=== PATIENT | female | born 1980 | race Caucasian/White ===

== ENCOUNTER 2019-08-02 09:30 | Emergency (ER) | payer OTHER, SELFPAY ==
[2019-08-02 09:36] VITALS: BP 121/77; PULSE 104; RESP 16; TEMP 36.6; O2SAT 97; BMI 29.2
--- NOTE | 2019-08-02 09:48 | ED_ITS ---
HPI - General Adult General: Chief complaint: General Medical Stated complaint: Fever,throat hurts Time Seen by Provider: 08/02/19 09:33 History of Present Illness: HPI narrative: Sore throat headache body aches MD complaint: f fever x2 days. Has been exposed to flulu Onset (ago): day(s) (2) Associated symptoms: Deny chest pain, dyspnea, headache(s), nausea, rash or vomiting Review of Systems Const: Reports: fever and other; Denies: chills or body aches Eyes: Denies: change in vision or blurry vision ENMT: Reports: throat pain and painful swallowing; Denies: nasal congestion Card: Denies: chest pain or shortness of breath on exertion Resp: Denies: shortness of breath, productive cough or non-productive cough GI: Denies: abdominal pain, nausea or vomiting Musc: Denies: extremity pain Skin/Breast: Denies: rash Neuro: Denies: headache Psych: Denies: anxiety or depression Andrea/Lymph: Denies: easy bruising PFSH ED PFSH: Statuses (acute, chronic, etc) shown below reflect problem list status as previously entered and may not be historically accurate Social History Smoking and tobacco status: current every day smoker Physical Exam Const: COMMON NORMALS: no apparent distress, average body habitus and oriented x3 HENMT: COMMON NORMALS: normocephalic HEAD & SCALP: normal to inspection and normocephalic FACE & SINUS: normal facial exam THROAT: posterior oropharynx abnormal (Erythema) Eye: COMMON NORMALS: conjunctivae normal GENERAL EYE: normal appearance of both eyes CONJUNCTIVA: Yes conjunctivae normal Neck/C-Spine: COMMON NORMALS: no JVD Chest: COMMONS NORMALS: inspection of chest normal Resp: COMMON NORMALS: normal respiratory effort and clear to auscultation bilaterally AUSCULTATION: clear to auscultation bilaterally Cardio: COMMON NORMALS: no JVD, regular rate and regular rhythm RATE: regular rate RHYTHM: regular rhythm GI: COMMON NORMALS: normal to inspection, nondistended, normoactive bowel sounds Extremity: COMMON NORMALS: normal to inspection and full ROM Neuro: COMMON NORMALS: oriented x3 Course Vital Signs: Vital signs: Vital Signs Temperature 97.8 F 08/02/19 09:36 Pulse Rate 104 H 08/02/19 09:36 Respiratory Rate 16 08/02/19 09:36 Blood Pressure 121/77 08/02/19 09:36 Pulse Oximetry 97 08/02/19 09:36 Coding Level of Care Code ED Store Standards Associate for Chg Fwd Exam Problem Focused
--- NOTE | 2019-08-02 09:49 | PC.NURSE ---
visualized throat , swollen and red
[2019-08-02 10:37] LABS: Rapid Strep A Test Positive (Negative)
[2019-08-02 10:50] LABS: Influenza A by IFA Negative (Negative); Influenza B by IFA Negative (Negative)
== END 2019-08-02 11:02 | disposition home or self-care (01) ==
PROVIDERS: Emergency Provider Nurse Practitioner Family; Family Provider Internal Medicine
DX: R50.9 Fever, unspecified (principal); F17.210 Nicotine dependence, cigarettes, uncomplicated
CPT/HCPCS: 87804; 87880; 99281; 99282

== ENCOUNTER 2022-08-20 12:33 | Outpatient (CLI) | payer OTHER, SELFPAY ==
--- NOTE | 2022-08-20 13:20 | MM_ITS ---
WS: [id number] BILATERAL 3D TOMOSYNTHESIS DIGITAL SCREENING MAMMOGRAPHY WITH CAD CLINICAL INFORMATION: SCREENING HISTORY: Screening mammogram. No current complaints. COMPARISON: 2013 TECHNIQUE: Bilateral CC and MLO views. FINDINGS: The breasts are composed of heterogeneous fibroglandular density tissue, which can limit the detectio n of small underlying mass lesions. No suspicious mass, asymmetry, calcifications, or architectural d istortion. No evidence of malignancy. MM/[place] [id number] IMPRESSION: BI-RADS: 1-Negative FOLLOW UP: 1 Year Follow-up Recommend return to annual screening mammography.
== END 2022-08-20 12:34 | disposition home or self-care (01) ==
LOC: RAD 12:41
PROVIDERS: PCP Internal Medicine; Visit Provider Family Medicine
DX: Z12.31 Encounter for screening mammogram for malignant neoplasm of breast (principal)
CPT/HCPCS: 77063; 77067

== ENCOUNTER 2023-11-16 17:37 | Emergency (ER) | payer OTHER, SELFPAY ==
[2023-11-16 17:41] VITALS: BP 131/76; PULSE 101; RESP 14; TEMP 36.7; O2SAT 99
--- NOTE | 2023-11-16 17:55 | CTR_ITS ---
PROCEDURE INFORMATION: Exam: CT Maxillofacial Without Contrast Exam date and time: 11/16/2023 6:03 PM Age: 43 years old Clinical indication: Other: Swollen RT ear; Additional info: Right ear, face swelling TECHNIQUE: Imaging protocol: Computed tomography of the face without contrast. Radiation optimization: All CT scans at this facility use at least one of these dose optimization techniques: automated exposure control; mA and/or kV adjustment per patient size (includes targeted exams where dose is matched to clinical indication); or iterative reconstruction. COMPARISON: No relevant prior studies available. RADIATION DOSE METRICS: Total DLP (mGy-cm): 641.28 FINDINGS: Orbital cavities: Orbits are normal. Globes are unremarkable. Bones: No acute fracture. Paranasal sinuses: Normal. No air-fluid levels. Mastoid air cells: Trace fluid in the inferior right mastoid air cells. The mastoid air cells are otherwise clear. Auditory system: Minimal soft tissue swelling just anterior to the right external auditory canal between the auditory canal in the maxillary condyle. No definitive fluid collection though thin linear fluid collection measuring less than 3 mm in thickness. No fluid identified within the middle ear bilaterally. Soft tissues: Soft tissues are otherwise unremarkable. CT/CT facial bones wo con* [id number] IMPRESSION: 1. Minimal soft tissue thickening just anterior to the right external auditory canal. No definitive fluid collection is seen though a thin linear fluid collection measuring less than 3 mm anterior to the external auditory canal is possible. Correlate with physical exam. 2. Trace fluid in the inferior right mastoid air cells.
--- NOTE | 2023-11-16 17:56 | W.ED.EAR ---
Documented by User: [email or web address] Campbell 11/16/23 19:27 HPI - Ear Problem General: Chief complaint: Ear Stated complaint: right ear swollen Time Seen by Provider: 11/16/23 17:48 Source: patient Mode of arrival: ambulatory Limitations: no limitations History of Present Illness: Patient is a 43-year-old female presenting to the emergency department complaining of right ear and face swelling onset 2 days. Patient notes that began with her ear, though now has spread to her right face and submandibular area. She denies any hearing changes or posterior ear pain. Additionally she denies any inner ear pain. No recent sinus infections or upper respiratory infections of any kind. No fevers noted. She denies any tongue or throat swelling or breathing difficulties. She is only taking Excedrin for her symptoms, no relief. Pain is worse with manipulation of the right ear and palpation of the right face. MD Complaint: ear pain Location: right ear Duration: constant Severity: moderate Relieving factors: nothing Exacerbating factors: palpation Discharge from ear: no Associated symptoms: Reports ear or mastoid pain; Denies fever(s), headache(s), neck pain or tinnitus Treatment prior to arrival: other (Excedrin) Review of Systems General: Reports: 10 or more systems reviewed and unremarkable except in HPI and below Const: Denies: fever(s), chills or fatigue Eyes: Denies: change in vision ENMT: Reports: ear or mastoid pain and sinus pain; Denies: throat pain, ear discharge, change in hearing, tinnitus or nasal discharge Card: Denies: chest pain, palpitations, swelling of feet/ankles or lightheadedness Resp: Denies: dyspnea, productive cough or wheezing GI: Denies: abdominal pain, nausea, vomiting, diarrhea or constipation : Denies: flank pain, difficulty voiding, dysuria or urinary frequency Musc: Denies: neck pain, back pain or joint pain Skin/Breast: Denies: rash Neuro: Denies: headache(s), numbness in extremities or weakness in extremities PFSH ED PFSH: Medical History Asthma Family History Other Cancer Diabetes Heart disease Social History Smoking and tobacco/nicotine status: current every day tobacco/nicotine user Alcohol intake: never Marital status: Single service: No Current gender identity: Female Physical Exam Const: COMMON NORMALS: no acute distress and healthy appearing GENERAL APPEARANCE: cooperative, comfortable and well developed HENMT: COMMON NORMALS: normocephalic, atraumatic, hearing grossly normal bilaterally, EAC's normal, TM's normal bilaterally, Normal external nose present and Normal nasal mucous membranes and turbinates present HEAD & SCALP: normal to inspection, normocephalic and atraumatic FACE & SINUS: sinuses nontender, erythema on the right, edema on the right and Facial tenderness on exam of face and sinuses on the right; no abrasion, no fluctuance and no scar NOSE: Normal external nose present, Normal nares present, No nasal polyps present and Normal nasal mucous membranes and turbinates present EXTERNAL EAR: Yes external ear abnormal Abnormal external ear present: auricular tenderness and other (Auricle is erythematous and slightly edematous) and Yes mastoids normal EXTERNAL AUDITORY CANAL: EAC's normal TYMPANIC MEMBRANE: TM's normal bilaterally MOUTH: Normal oral and palatal mucosa present THROAT: posterior oropharynx normal and tonsils normal Eye: COMMON NORMALS: EOMs intact bilaterally, conjunctivae normal and normal visual vega by confrontation GENERAL EYE: appearance normal, both eyes and all related structures CONJUNCTIVA: Yes conjunctivae normal Neck/C-Spine: COMMON NORMALS: full ROM, no lymphadenopathy, supple and no meningeal signs GENERAL: Yes normal visual inspection Chest: COMMONS NORMALS: normal inspection of the chest Resp: COMMON NORMALS: normal respiratory effort and clear to auscultation bilaterally EFFORT & INSPECTION: Yes able to speak in complete sentences AUSCULTATION: clear to auscultation bilaterally Cardio: COMMON NORMALS: regular rate, regular rhythm, S1 normal heart sound present and S2 normal heart sound present RATE: regular rate RHYTHM: regular rhythm HEART SOUNDS: S1 normal heart sound present, S2 normal heart sound present, no gallops, no murmurs and no rubs Extremity: COMMON NORMALS: normal to inspection, full ROM and capillary refill normal Neuro: MENINGEAL SIGNS: Yes no meningeal signs Skin: COMMON NORMALS: no rashes or lesions noted GENERAL SKIN EXAM: no rashes or lesions noted Course Vital Signs: Vital signs: Vital Signs Temperature 98.0 F 11/16/23 17:41 Pulse Rate 87 11/16/23 19:30 Respiratory Rate 14 11/16/23 19:30 Blood Pressure 125/83 11/16/23 19:04 Pulse Oximetry 98 11/16/23 19:30 Oxygen Delivery Me thod Room Air 11/16/23 19:04 MDM - Ear Medical Decision Making Patient presents for right auricular swelling and some facial pain for the past couple days. On arrival her vitals were unremarkable. She was given shot of Decadron initially, then a facial CT was obtained that showed some soft tissue swelling just anterior to the right ear, no obvious abscess was noted. Clinically I do not believe she has an abscess as there is no area of fluctuance. Fluid was noted just inferior to the right mastoid area, so we will treat for an acute mastoiditis with ciprofloxacin and steroids. Additionally I will refer her to ENT for any further evaluation, and return precautions were given in the case that her mastoiditis were to progress. Patient agrees with plan and will be discharged home. Lab Data Radiology Impressions Face CT 11/16/23 17:55 IMPRESSION: 1. Minimal soft tissue thickening just anterior to the right external auditory canal. No definitive fluid collection is seen though a thin linear fluid collection measuring less than 3 mm anterior to the external auditory canal is possible. Correlate with physical exam. 2. Trace fluid in the inferior right mastoid air cells. All radiology interpretation(s) finalized by discharge Discharge Plan Discharge Patient Disposition: Home Clinical Impression: Acute mastoiditis Qualifiers: Laterality: right Qualified Code(s): H70.001 - Acute mastoiditis without complications, right ear Condition: Stable Prescriptions: New Cipro 500 mg tablet 500 mg PO BID 10 Days Qty: 20 0RF No Action sumatriptan succinate [Imitrex] 50 mg tablet See Rx Instructions PO .COMPLEX Rx Instructions: take 1 tab at onset of headache; if no relief may repeat 1 tab after at least 2 hrs; max = 4 tabs/24 hr PO amitriptyline 75 mg tablet 75 mg PO BEDTIME Qty: 90 3RF Discharge Orders: Discharge ED (Routine); Ordered 11/16/23 Ordered By: Orion Ballard Referrals: Zaire Acuna MD [Primary Care Provider] - Discharge Diet: Usual diet Discharge Activity: Increase activity as tolerated Patient Instructions: Mastoiditis (ED) Activity Restrictions/Additional Instructions: Take antibiotics as prescribed. Prednisone as prescribed. Follow-up with ENT as discussed. If your condition worsens or you develop any posterior ear swelling or redness, return to the emergency department. Otherwise, you may follow-up as planned. Coding Level of Care Code ED Medical Review Coordinator for Chg Fwd Documented by User: Tyron Miller DO 11/23/23 07:08 HPI - Ear Problem General: Chief complaint: Ear Stated complaint: right ear swollen Time Seen by Provider: 11/16/23 17:48 [facility] ED PFSH: Medical History Asthma Family History Other Cancer Diabetes Heart disease Social History Smoking and tobacco/nicotine status: current every day tobacco/nicotine user Alcohol intake: never Marital status: Single service: No Current gender identity: Female Course Vital Signs: Vital signs: Vital Signs Temperature 98.0 F 11/16/23 17:41 Pulse Rate 87 11/16/23 19:30 Respiratory Rate 14 11/16/23 19:30 Blood Pressure 125/83 11/16/23 19:04 Pulse Oximetry 98 11/16/23 19:30 Oxygen Delivery Me thod Room Air 11/16/23 19:04 MDM - Ear Medical Decision Making Patient presents for right auricular swelling and some facial pain for the past couple days. On arrival her vitals were unremarkable. She was given shot of Decadron initially, then a facial CT was obtained that showed some soft tissue swelling just anterior to the right ear, no obvious abscess was noted. Clinically I do not believe she has an abscess as there is no area of fluctuance. Fluid was noted just inferior to the right mastoid area, so we will treat for an acute mastoiditis with ciprofloxacin and steroids. Additionally I will refer her to ENT for any further evaluation, and return precautions were given in the case that her mastoiditis were to progress. Patient agrees with plan and will be discharged home. Chart reviewed Lab Data Radiology Impressions Face CT 11/16/23 17:55 IMPRESSION: 1. Minimal soft tissue thickening just anterior to the right external auditory canal. No definitive fluid collection is seen though a thin linear fluid collection measuring less than 3 mm anterior to the external auditory canal is possible. Correlate with physical exam. 2. Trace fluid in the inferior right mastoid air cells. Discharge Plan Discharge Patient Disposition: Home Clinical Impression: Acute mastoiditis Qualifiers: Laterality: right Qualified Code(s): H70.001 - Acute mastoiditis without complications, right ear Condition: Stable Prescriptions: New Cipro 500 mg tablet 500 mg PO BID 10 Days Qty: 20 0RF No Action sumatriptan succinate [Imitrex] 50 mg tablet See Rx Instructions PO .COMPLEX Rx Instructions: take 1 tab at onset of headache; if no relief may repeat 1 tab after at least 2 hrs; max = 4 tabs/24 hr PO amitriptyline 75 mg tablet 75 mg PO BEDTIME Qty: 90 3RF Discharge Orders: Discharge ED (Routine); Ordered 11/16/23 Ordered By: Orion Ballard Referrals: Zaire Acuna MD [Primary Care Provider] - Discharge Diet: Usual diet Discharge Activity: Increase activity as tolerated Patient Instructions: Mastoiditis (ED) Activity Restrictions/Additional Instructions: Take antibiotics as prescribed. Prednisone as prescribed. Follow-up with ENT as discussed. If your condition worsens or you develop any posterior ear swelling or redness, return to the emergency department. Otherwise, you may follow-up as planned. Coding Level of Care Code ED Medical Review Coordinator for Marleen Lilly
[2023-11-16] MEDS: dexamethasone 10 mg/mL INJ IM (17:58)
[2023-11-16 18:41] VITALS: BP 147/100; RESP 14; O2SAT 100
[2023-11-16] MEDS: HYDROcodone-acetaminophen 7.5-325 mg Tablet 1 TAB PO (18:44)
[2023-11-16 19:04] VITALS: BP 125/83; O2SAT 99
[2023-11-16] MEDS: predniSONE 20 mg Tablet 60 MG PO (19:29)
[2023-11-16] MEDS: ciprofloxacin 500 mg Tablet PO (19:29)
[2023-11-16 19:30] VITALS: PULSE 87; RESP 14; O2SAT 98
== END 2023-11-16 19:32 | disposition home or self-care (01) ==
PROVIDERS: Emergency Provider Physician Assistant; PCP Family Medicine
DX: H70.001 Acute mastoiditis without complications, right ear (principal); Z72.0 Tobacco use
CPT/HCPCS: 70486; 96372; 99284; J1100; J7512

== ENCOUNTER 2023-11-24 16:54 | Emergency (ER) | payer OTHER, SELFPAY ==
[2023-11-24 17:00] VITALS: BP 144/83; PULSE 95; RESP 18; TEMP 37.2; O2SAT 98; BMI 27.8
[2023-11-24 17:30] VITALS: BP 120/64; PULSE 68; O2SAT 96
--- NOTE | 2023-11-24 17:32 | W.ED.HA ---
HPI - Headache General: Chief Complaint: Headache Stated Complaint: headache, chest pain, conjestion Time Seen by Provider: 11/24/23 17:17 Source: patient and family Mode of arrival: ambulatory Limitations: no limitations History of Present Illness: This patient returns to the emergency department. She apparently was seen in the emergency department November 15. At that time she was having some subjective right ear pain and right facial pain. She was evaluated thought to have possible mild mastoiditis by diagnosis and treated with antibiotics and steroids. She states she still has congestion some mild headache as well as sore throat. She states she has no taste. She denies any fevers or chills. She denies any vertigo change in her hearing etc. She states that the Cipro upsets her stomach and she has stopped taking it. She denies any known exposure to infectious disease. She does not use tobacco although she occasionally vapes. She states the headache is not pervasive to her and not a significant issue other than that she is kind of a frontal headache. Denies any concomitant nausea vomiting diarrhea shortness of breath cough etc. Associated symptoms: Deny chest pain, fever(s), nausea, rash or vomiting Review of Systems Const: Denies: fever(s), chills or body aches Eyes: Denies: change in vision or blurry vision ENMT: Reports: throat pain and nasal congestion; Denies: odynophagia or nasal discharge Card: Denies: chest pain, palpitations or irregular heart rhythm Resp: Denies: dyspnea, productive cough or non-productive cough GI: Denies: nausea, vomiting or diarrhea : Denies: flank pain, difficulty voiding or dysuria Musc: Denies: neck pain, back pain or extremity pain Skin/Breast: Denies: rash, pruritus or erythema Neuro: Denies: numbness in extremities or weakness in extremities Psych: Denies: anxiety, depression or mood swings Endo: Denies: polyuria, polydipsia or tired all the time Andrea/Lymph: Denies: easy bruising [facility] ED PFSH: Medical History Asthma Family History Other Cancer Diabetes Heart disease Social History Smoking and tobacco/nicotine status: current every day tobacco/nicotine user Alcohol intake: never Marital status: Single service: No Current gender identity: Female Physical Exam Narrative: EXAM NARRATIVE: She makes good eye contact appears to be in no acute distress answers questions in a goal-directed voice and complete sentences. Const: COMMON NORMALS: no acute distress, average body habitus and patient oriented x3 GENERAL APPEARANCE: cooperative and comfortable HENMT: COMMON NORMALS: normocephalic, atraumatic, external ears normal (Nontender in the postauricular and preauricular regions.), EAC's normal, TM's normal bilaterally, Normal nasal mucous membranes and turbinates present, moist oral mucous membranes and oropharynx normal HEAD & SCALP: normocephalic and atraumatic FACE & SINUS: normal facial exam, sinuses nontender and face symmetric NOSE: Normal nasal mucous membranes and turbinates present EXTERNAL EAR: Yes external ears normal (Nontender in the postauricular and preauricular regions.) EXTERNAL AUDITORY CANAL: EAC's normal TYMPANIC MEMBRANE: TM's normal bilaterally Eye: COMMON NORMALS: Equal, round and reactive pupils present, EOMs intact bilaterally and conjunctivae normal CONJUNCTIVA: Yes conjunctivae normal PUPIL: Yes Equal, round and reactive pupils present Neck/C-Spine: COMMON NORMALS: full ROM, no lymphadenopathy and supple Chest: COMMONS NORMALS: normal inspection of the chest and normal palpation of entire chest wall Resp: COMMON NORMALS: normal respiratory effort, No retractions, No use of accessory muscles and clear to auscultation bilaterally AUSCULTATION: clear to auscultation bilaterally Cardio: COMMON NORMALS: regular rate, regular rhythm, No murmurs present (Cardio) and Peripheral pulses 2+ throughout RATE: regular rate RHYTHM: regular rhythm PERIPHERAL PULSES: Peripheral pulses 2+ throughout GI: COMMON NORMALS: Normal to inspection, nondistended, normoactive bowel sounds present, Soft to palpation and non-tender PALPATION: Yes Soft to palpation : COMMON NORMALS: Yes no CVA tenderness BLADDER/KIDNEY EXAM: Yes no CVA tenderness Back/Pelvis: COMMON NORMALS: no CVA tenderness, thoracic and lumbar spine normal to inspection and no thoracic nor lumbar tenderness Extremity: COMMON NORMALS: normal to inspection, full ROM, capillary refill normal and no joint enlargement Neuro: COMMON NORMALS: patient oriented x3, moves all extremities, no focal motor deficits and no sensory deficits noted CRANIAL NERVES: Yes CN normal except as noted Psych: COMMON NORMALS: mental status grossly normal Skin: COMMON NORMALS: no rashes or lesions noted, no wounds and turgor normal GENERAL SKIN EXAM: no rashes or lesions noted and turgor normal Course Reevaluation(s): Reevaluation #1: I discussed my clinical impression with both patient and spouse. Given the lack of significant findings on her CT scan at her previous ED evaluation as well as her current evaluation which does not suggest any significant pathology I recommend that we ensure that she does not have COVID which can cause much much of the symptoms she has but also recommended that we stop her ciprofloxacin and follow her clinical response. She has no evidence at this time clinically that suggest a serious head and neck infection etc. They voiced understanding and agreed with the plan of care. Time: 17:57 Vital Signs: Vital signs: Vital Signs Temperature 98.9 F 11/24/23 17:00 Pulse Rate 68 11/24/23 17:30 Respiratory Rate 18 11/24/23 17:00 Blood Pressure 120/64 11/24/23 17:30 Pulse Oximetry 96 11/24/23 17:30 Oxygen Delivery Me thod Room Air 11/24/23 17:30 MDM - Headache Medical Decision Making This patient returns to the emergency department because she was concerned about how she was feeling from her treatment for her head and neck infection. She has been taking the steroids as well as a Cipro but felt like she was not having any significant improvement in her symptoms. She was basically having poor taste upper congestion without fevers as well as being sick at her stomach which she related to her medications. She was examined clinically and found to have no evidence of any serious illness. There is certainly no evidence of a serious head neck infection as manifested by mastoid tenderness erythema oropharyngeal tenderness mass etc. There is no parotid masses. There is no evidence of neck adenopathy or mass. The remainder of her clinical examination is reassuring. I reviewed her CT scan another findings which were reassuring. I advised that we would obtain a COVID test as a lot of the symptoms that she is experiencing could be from occult COVID. I also discussed the fact that she did not need any antibiotics at this point and that we should follow her clinically. No evidence of a ongoing emergency medical condition at this time. Medical Records I reviewed the patient's medical records. Facial CT from last visit did not reveal any significant pathology. There is certainly no evidence of mastoiditis by the CT. No radiology studies performed this visit Discharge Plan Discharge Patient Disposition: Home Clinical Impression: Acute upper respiratory infection Condition: Stable Prescriptions: Discontinued ciprofloxacin HCl [Cipro] 500 mg tablet 500 mg PO BID 10 Days Qty: 20 0RF No Action sumatriptan succinate [Imitrex] 50 mg tablet See Rx Instructions PO .COMPLEX Rx Instructions: take 1 tab at onset of headache; if no relief may repeat 1 tab after at least 2 hrs; max = 4 tabs/24 hr PO amitriptyline 75 mg tablet 75 mg PO BEDTIME Qty: 90 3RF Discharge Orders: Discharge ED (Routine); Ordered 11/24/23 Ordered By: Reji Wilson Referrals: Zaire Acuna MD [Primary Care Provider] - Discharge Diet: Usual diet Discharge Activity: Increase activity as tolerated Patient Instructions: Opioid Safety, Pain Management Activity Restrictions/Additional Instructions: As we discussed while you are in the emergency department there is no evidence of a serious and condition based upon your clinical examination and reevaluation of her prior studies. We recommend stopping your ciprofloxacin continue with your other usual medications increasing her diet and following her clinical response at home. If you do not continue to improve or worsen at any time or develop new symptoms you are welcome to return to the emergency department for reevaluation. Coding Level of Care Code ED Custom Tailor Apprentice for Marleen Lilly
--- NOTE | 2023-11-24 18:51 | PC.NURSE ---
Assumed care from Dianne DAVIS.
[2023-11-24 18:59] LABS: SARS Covid-2 Antigen negative (Negative)
[2023-11-24 19:12] VITALS: BP 146/85; PULSE 95; O2SAT 97
== END 2023-11-24 19:05 | disposition home or self-care (01) ==
PROVIDERS: Emergency Provider Emergency Medicine; PCP Family Medicine
DX: J06.9 Acute upper respiratory infection, unspecified (principal); Z72.0 Tobacco use; Z11.52 Encounter for screening for COVID-19
CPT/HCPCS: 87426; 99283